=== PATIENT | male | born 1985 | race Caucasian/White ===

== ENCOUNTER 2021-07-09 08:46 | Emergency (ER) | payer OTHER ==
[~2021-07-09] VITALS: Ht 175.3 cm; Wt 90.7 kg
[2021-07-09] MEDS ORDERED: XANAX1 MG PO (09:00)
[2021-07-09] MEDS ORDERED: ADDERALL PO (09:00)
[2021-07-09 09:31] LABS: HEMATOCRIT 44.5 % (42.0-52.0); HEMOGLOBIN 15.2 gm/dL (14.0-18.0); MCH 30.5 pg (26.0-34.0); MCHC 34.1 g/dL (28.0-37.0); MCV 89.4 fL (80.0-100.0); RBC 4.97 mil/uL (4.50-6.00); RDW 13.5 % (10.5-14.5); WBC 9.9 thou/uL (4.0-11.0)
[2021-07-09 09:39] LABS: CALCIUM 9.8 mg/dL (8.5-10.1); CREATININE 1.3 mg/dL (0.7-1.3); POTASSIUM 3.6 mmol/L (3.5-5.1)
[2021-07-09 09:47] LABS: ALBUMIN 4.3 g/dL (3.4-5.0); MAGNESIUM 2.3 mg/dL (1.8-2.4); PHOSPHORUS 3.5 mg/dL (2.6-4.7); SALICYLATE 3.3 mg/dL (2.8-20.0); TOTAL BILIRUBIN 0.7 mg/dL (0.2-1.0)
[2021-07-09 10:29] LABS: URINE BILIRUBIN NEGATIVE (Negative); URINE BLOOD NEGATIVE (Negative); URINE CLARITY CLEAR; URINE COLOR YELLOW; URINE GLUCOSE-RANDOM* NEGATIVE (Negative); URINE KETONES NEGATIVE (Negative); URINE LEUKOCYTES-REFLEX NEGATIVE (Negative); URINE NITRITE-REFLEX NEGATIVE (Negative); URINE PROTEIN (DIPSTICK) NEGATIVE (Negative); URINE SPECIFIC GRAVITY >= 1.030 (1.005-1.035); URINE UROBILINOGEN 0.2 E.U./dl (0.2-1.0)
[2021-07-09 10:33] LABS: AMP/METHAMP POSITIVE (Negative); BARBITURATES Negative (Negative); BENZODIAZEPINES POSITIVE (Negative); COCAINE Negative (Negative); METHADONE Negative (Negative); OPIATES Negative (Negative); PCP Negative (Negative)
--- NOTE | 2021-07-09 15:10 | EKG ---
[address] [address] ELECTROCARDIOGRAM REPORT Name: DEVON LYNN Room #: REG Gregory#: [id number] Admission: 07/09/21 Attend Phys: Discharge: Date of : 83 Report #: [id number] [facility] ED Test Date: 2021-07-09 Test Time: 09:23:51 Pat Name: DEVON LYNN Department: Room: Gender: M [employer] Operator: : [id number] Requested By: Ranjit Jacobs Order Number: [id number] MD: Adrian Molina Measurements Intervals [place] Rate: 99 P: 130 KS: 139 QRS: 109 QRSD: 105 T: 175 QT: 354 QTc: 455 Interpretive Statements Sinus rhythm NON-SPECIFIC ST-T WAVE CHANGE No previous ECG available for comparison Electronically Signed On 07-09-2021 15:09:53 CDT by Adrian Molina [email or web address] <ELECTRONICALLY SIGNED> By: Adrian Molina MD, [facility] 07/09/21 1509 0923 2 Adrian Molina MD, FACC /EPI
[2021-07-09 17:08] VITALS: BP 110/63
[2021-07-09] MEDS ORDERED: CEPHALEXIN500 MG PO (18:11)
== END 2021-07-09 18:26 | disposition home or self-care (01) ==
LOC: ER 08:46
PROVIDERS: Emergency Medicine
DX: S90.852A Superficial foreign body, left foot, initial encounter (principal); Z20.822 Contact with and (suspected) exposure to COVID-19; F15.959 Other stimulant use, unspecified with stimulant-induced psychotic disorder, unspecified; R41.82 Altered mental status, unspecified; F90.9 Attention-deficit hyperactivity disorder, unspecified type; F41.9 Anxiety disorder, unspecified; Z88.2 Allergy status to sulfonamides; X58.XXXA Exposure to other specified factors, initial encounter; Y93.89 Activity, other specified; Y92.89 Other specified places as the place of occurrence of the external cause; Y99.8 Other external cause status